=== PATIENT | male | born 1995 | race Caucasian/White ===

== ENCOUNTER → 2018-08-15 | Outpatient (CLI) | payer BC ==
[2018-08-15 08:36] LABS: ABSOLUTE BASOPHILS # (AUTO) 0.1 10^3/uL (0.0-0.2); ABSOLUTE EOSINOPHILS # (AUTO) 0.3 10^3/uL (0.0-0.6); ABSOLUTE LYMPHOCYTES (AUTO) 3.3 10^3/uL (0.5-4.7); ABSOLUTE MONOCYTES (AUTO) 1.1 10^3/uL (0.1-1.4); ABSOLUTE NEUT (AUTO) 7.8 10^3/uL (1.7-8.2); BASOPHILS % (AUTO) 0.6 % (0-2); HEMATOCRIT 47.2 % (37.9-51.0); HEMOGLOBIN 15.9 g/dL (13.5-17.0); LYMPHOCYTES % (AUTO) 26.6 % (13-45); MEAN CORPUSCULAR HEMOGLOBIN 29.6 pg (27.0-33.4); MEAN CORPUSCULAR HGB CONC 33.8 g/dL (32.0-36.0); MEAN CORPUSCULAR VOLUME 88 fl (80-97); MONOCYTES % (AUTO) 8.7 % (3-13); PLATELET COUNT 254 10^3/uL (150-450); RED BLOOD COUNT 5.38 10^6/uL (4.35-5.55); RED CELL DISTRIBUTION WIDTH 14.2 % (11.5-14.0); SEGMENTED NEUTROPHILS % (AUTO) 62.1 % (42-78); TOTAL CELLS COUNTED % (AUTO) 100 %; WHITE BLOOD COUNT 12.5 10^3/uL (4.0-10.5)
[2018-08-15 08:52] LABS: ALANINE AMINOTRANSFERASE 26 U/L (21-72); ALBUMIN 4.5 g/dL (3.5-5.0); ALKALINE PHOSPHATASE 54 U/L (38-126); AMYLASE 72 U/L (30-110); ANION GAP 11 (5-19); ASPARTATE AMINO TRANSFERASE 16 U/L (17-59); BILIRUBIN,DIRECT 0.3 mg/dL (0.0-0.4); BILIRUBIN,TOTAL 0.8 mg/dL (0.2-1.3); BLOOD UREA NITROGEN 13 mg/dL (7-20); CALCIUM 9.9 mg/dL (8.4-10.2); CARBON DIOXIDE 30 mmol/L (22-30); CHLORIDE 101 mmol/L (98-107); CHOLESTEROL 198.43 mg/dL (0-200); GLUCOSE 90 mg/dL (75-110); LIPASE 46.4 U/L (23-300); POTASSIUM 4.5 mmol/L (3.6-5.0); SODIUM 141.6 mmol/L (137-145); TOTAL PROTEIN 7.3 g/dL (6.3-8.2); TRIGLYCERIDES 176 mg/dL (<150)
[2018-08-15 09:03] LABS: DIRECT LDL 149 mg/dL (<100)
[2018-08-15 09:06] LABS: VLDL CHOLESTEROL 35.2 mg/dL (10-31)
== END ==
LOC: OD 07:41
PROVIDERS: ATTEND Family Medicine Geriatric Medicine
DX: R10.13 Epigastric pain (principal); R10.11 Right upper quadrant pain; R10.12 Left upper quadrant pain; K29.00 Acute gastritis without bleeding; E66.3 Overweight; Z29.9 Encounter for prophylactic measures, unspecified; Z79.899 Other long term (current) drug therapy
CPT/HCPCS: 36415; 80053; 80061; 82150; 83690; 84443; 85025

== ENCOUNTER → 2018-08-19 | Outpatient (CLI) | payer BC ==
--- NOTE | 2018-08-19 10:06 | RADIOLOGY REPORT (SQ) ---
EXAM DESCRIPTION: U/S ABDOMEN COMPLETE W/DOPPLER COMPLETED DATE/TIME: 08/19/2018 9:31 am REASON FOR STUDY: EPIGASTRIC PAIN (R10.13) R10.13 EPIGASTRIC PAIN COMPARISON: None. TECHNIQUE: Dynamic and static grayscale images acquired of the abdomen and recorded on PACS. Additio nal selected color Doppler and spectral images recorded. LIMITATIONS: None. FINDINGS: PANCREAS: Midline pancreas unremarkable. Pancreatic tail not well seen due to limited aco ustic window. LIVER: No masses. Echotexture normal. LIVER VASCULATURE: Normal directional flow of the main portal vein and hepatic veins. GALLBLADDER: No stones. Normal wall thickness. No pericholecystic fluid. ULTRASOUND-DETECTED AVENDANO'S SIGN: Negative. INTRAHEPATIC DUCTS AND COMMON DUCT: CBD and intrahepatic ducts normal caliber. No filling defects. INFERIOR VENA CAVA: Normal flow. AORTA: No aneurysm. RIGHT KIDNEY: Normal size. Normal echogenicity. No solid or suspicious masses. No hydronephros is. No calcifications. LEFT KIDNEY: Normal size. Normal echogenicity. No solid or suspicious masses. No hydronephrosi s. No calcifications. SPLEEN: Normal size. No solid masses. PERITONEAL AND PLEURAL SPACES: No ascites or effusions. OTHER: No other significant finding. IMPRESSION: NORMAL ABDOMINAL ULTRASOUND. TECHNICAL DOCUMENTATION: JOB ID: [id number] [email or web address]- All Rights Reserved Reading location - IP/workstation name: [email or web address]
== END ==
LOC: RAD 07:56
PROVIDERS: ATTEND Family Medicine Geriatric Medicine
DX: R10.13 Epigastric pain (principal)
CPT/HCPCS: 76700; 93976

== ENCOUNTER 2018-08-22 12:41 | Emergency (ER) | payer BC ==
[2018-08-22 12:45] VITALS: BP 131/84
[2018-08-22] MEDS ORDERED: KETOROLAC TROMETHAMINE 10 MG TABLET PO ONE (12:55)
[2018-08-22] MEDS ORDERED: DICYCLOMINE HCL 20 MG TABLET PO ONE (12:55)
--- NOTE | 2018-08-22 12:57 | ER Document Report ---
ED GI/ - General Chief Complaint: Abdominal Pain Stated Complaint: ABDOMINAL PAIN Time Seen by Provider: 08/22/18 12:48 Mode of Arrival: Ambulatory Information source: Patient Notes: Chief complaint: abdominal pain: History of complain:( obtained from----patient) 23 years old male presents today with right-sided abdominal pain for the last few weeks. Last 2 days increase in intensity. Associated with no nausea vomiting diarrhea dysuria frequency. Claims that he has daily bowel movements. Denies any cannabis abuse. Onset: As above gradual Duration: Last few weeks Severity: Mild to moderate Quality: Crampy Context: Unknown Exacerbating factor and relieving factors: None REVIEW OF SYSTEMS: CONSTITUTIONAL : Denies fever, chills, or sweats. Denies recent illness. EENT: Denies eye, ear, throat, or mouth pain or symptoms. Denies nasal or sinus congestion or discharge. Denies throat, tongue, or mouth swelling or difficulty swallowing. CARDIOVASCULAR: Denies chest pain. Denies palpitations or racing or irregular heart beat. Denies ankle edema. RESPIRATORY: Denies cough, cold, or chest congestion. Denies shortness of breath, difficulty breathing, or wheezing. GASTROINTESTINAL: Denies distention. Denies nausea, vomiting, or diarrhea. Denies blood in vomitus, stools, or per rectum. Denies black, tarry stools. Denies constipation. GENITOURINARY: Denies difficulty urinating, painful urination, burning, frequency, blood in urine, or discharge. FEMALE GENITOURINARY: Denies vaginal bleeding, heavy or abnormal periods, irregular periods. Denies vaginal discharge or odor. MUSCULOSKELETAL: Denies back or neck pain or stiffness. Denies joint pain or swelling. SKIN: Denies rash, lesions or sores. HEMATOLOGIC : Denies easy bruising or bleeding. LYMPHATIC: Denies swollen, enlarged glands. NEUROLOGICAL: Denies confusion or altered mental status. Denies passing out or loss of consciousness. Denies dizziness or lightheadedness. Denies headache. Denies weakness or paralysis or loss of use of either side. Denies problems with gait or speech. Denies sensory loss, numbness, or tingling. Denies seizures. PSYCHIATRIC: Denies anxiety or stress. Denies depression, suicidal ideation, or homicidal ideation. ALL OTHER SYSTEMS REVIEWED AND NEGATIVE. PHYSICAL EXAMINATION: GENERAL: Well-appearing, well-nourished and in no acute distress. HEAD: Atraumatic, normocephalic. EYES: Pupils equal round and reactive to light, extraocular movements intact, conjunctiva are normal. ENT: Nares patent, oropharynx clear without exudates. Moist mucous membranes. NECK: Normal range of motion, supple without lymphadenopathy LUNGS: Breath sounds clear to auscultation bilaterally and equal. No wheezes rales or rhonchi. HEART: Regular rate and rhythm without murmurs ABDOMEN: Soft, diffuse mild tenderness more so on the right side of the abdomen. , No flank tenderness, nondistended abdomen. No guarding, no rebound. No masses appreciated. Female : deferred Musculoskeletal: Normal range of motion, no pitting or edema. No cyanosis. NEUROLOGICAL: Cranial nerves grossly intact. Normal speech, normal gait. Normal sensory, motor exams PSYCH: Normal mood, normal affect. SKIN: Warm, Dry, normal turgor, no rashes or lesions noted. Dictation was performed using [employer] voice recognition software TRAVEL OUTSIDE OF THE [place] IN LAST 30 DAYS: No - HPI Notes: 08/22/18 12:56 Dictated - Related Data Allergies/Adverse Reactions: Sulfa (Sulfonamide Antibiotics) Allergy (Verified 08/22/18 12:42) Past Medical History - Social History Smoking Status: Never Smoker Chew tobacco use (# tins/day): No Frequency of alcohol use: None Drug Abuse: None Lives with: Family Family History: Reviewed & Not Pertinent Patient has suicidal ideation: No Patient has homicidal ideation: No Renal/ Medical History: Denies: Hx Peritoneal Dialysis Review of Systems - Review of Systems Notes: Dictated Physical Exam - Vital signs Vitals: Temp Pulse Resp BP Pulse Ox 97.4 F 89 16 131/84 H 99 08/22/18 12:42 08/22/18 12:42 08/22/18 12:42 08/22/18 12:42 08/22/18 12:42 - Notes Notes: Dictated Course - Vital Signs Vital signs: Temp Pulse Resp BP Pulse Ox 97.4 F 89 16 131/84 H 99 08/22/18 12:42 08/22/18 12:42 08/22/18 12:42 08/22/18 12:42 08/22/18 12:42 - Laboratory Result Diagrams: 08/22/18 13:24 08/22/18 13:24 Laboratory results interpreted by me: 08/22/18 13:24 Potassium 5.1 H AST 15 L ALT 19 L - Diagnostic Test Radiology reviewed: Image reviewed - KUB showed large amount of fecal material. Discharge - Discharge Clinical Impression: Constipation by delayed colonic transit Abdominal pain Qualifiers: Abdominal location: generalized Qualified Code(s): R10.84 - Generalized abdominal pain Condition: Fair Disposition: HOME, SELF-CARE Instructions: Abdominal Pain ([facility]), Constipation ([facility]) Prescriptions: Ketorolac Tromethamine [Toradol 10 mg Tablet] 10 mg PO Q6HP PRN #14 tablet PRN Reason: Dicyclomine HCl [Bentyl 10 mg Capsule] 1 cap PO TID #30 cap Lactulose [Cephulac Syrup 20 gm/30 ml Udcup] 20 gm PO BID #120 udc Referrals: ADAM ZIEGLER MD [Primary Care Provider] - Follow up as needed
[2018-08-22 13:44] LABS: ABSOLUTE EOSINOPHILS # (AUTO) 0.2 10^3/uL (0.0-0.6); ABSOLUTE LYMPHOCYTES (AUTO) 1.9 10^3/uL (0.5-4.7); ABSOLUTE MONOCYTES (AUTO) 1.1 10^3/uL (0.1-1.4); ABSOLUTE NEUT (AUTO) 6.7 10^3/uL (1.7-8.2); BASOPHILS % (AUTO) 0.5 % (0-2); EOSINOPHILS % (AUTO) 2.4 % (0-6); HEMATOCRIT 47.3 % (37.9-51.0); HEMOGLOBIN 16.1 g/dL (13.5-17.0); LYMPHOCYTES % (AUTO) 19.3 % (13-45); MEAN CORPUSCULAR HEMOGLOBIN 29.8 pg (27.0-33.4); MEAN CORPUSCULAR HGB CONC 34.1 g/dL (32.0-36.0); MEAN CORPUSCULAR VOLUME 88 fl (80-97); MONOCYTES % (AUTO) 11.1 % (3-13); PLATELET COUNT 221 10^3/uL (150-450); RED BLOOD COUNT 5.41 10^6/uL (4.35-5.55); RED CELL DISTRIBUTION WIDTH 13.8 % (11.5-14.0); SEGMENTED NEUTROPHILS % (AUTO) 66.7 % (42-78); TOTAL CELLS COUNTED % (AUTO) 100 %; WHITE BLOOD COUNT 10.1 10^3/uL (4.0-10.5)
[2018-08-22 13:49] LABS: APPEARANCE,URINE CLEAR; BILIRUBIN,URINE NEGATIVE (NEGATIVE); COLOR,URINE YELLOW; GLUCOSE, URINE NEGATIVE (NEGATIVE); KETONES,URINE NEGATIVE (NEGATIVE); LEUKOCYTE ESTERASE,URINE NEGATIVE (NEGATIVE); NITRITE,URINE NEGATIVE (NEGATIVE); PROTEIN,URINE NEGATIVE (NEGATIVE); URINE SPECIFIC GRAVITY 1.016; UROBILINOGEN,URINE NEGATIVE mg/dL (<2.0)
[2018-08-22 13:56] LABS: ALANINE AMINOTRANSFERASE 19 U/L (21-72); ALBUMIN 4.8 g/dL (3.5-5.0); ALKALINE PHOSPHATASE 63 U/L (38-126); ANION GAP 15 (5-19); ASPARTATE AMINO TRANSFERASE 15 U/L (17-59); BILIRUBIN,DIRECT 0.2 mg/dL (0.0-0.4); BILIRUBIN,TOTAL 0.5 mg/dL (0.2-1.3); BLOOD UREA NITROGEN 8 mg/dL (7-20); CARBON DIOXIDE 30 mmol/L (22-30); CHLORIDE 100 mmol/L (98-107); GLUCOSE 98 mg/dL (75-110); POTASSIUM 5.1 mmol/L (3.6-5.0); TOTAL PROTEIN 7.7 g/dL (6.3-8.2)
--- NOTE | 2018-08-22 13:56 | RADIOLOGY REPORT (SQ) ---
EXAM DESCRIPTION: KUB/ABDOMEN (SINGLE VIEW) COMPLETED DATE/TIME: 08/22/2018 1:44 pm REASON FOR STUDY: Abdominal pain COMPARISON: None. NUMBER OF VIEWS: One view. TECHNIQUE: Supine radiographic image of the abdomen acquired. LIMITATIONS: None. FINDINGS: BOWEL GAS PATTERN: Normal bowel gas pattern. No dilated loops. Gas and fecal material is identified in the distribution of the colon with a moderate amount of fecal material at the level of the rectosigmoid. CALCIFICATIONS: No suspicious calcifications. SOFT TISSUES: No gross mass or suggestion of organomegaly. HARDWARE: None in the abdomen. BONES: No acute fracture. No worrisome bone lesions. OTHER: No other significant finding. IMPRESSION: NO RADIOGRAPHIC EVIDENCE FOR ACUTE ABDOMINAL DISEASE. TECHNICAL DOCUMENTATION: JOB ID: [id number] [email or web address]- All Rights Reserved Reading location - IP/workstation name: [email or web address]
[2018-08-22 14:03] LABS: URINE AMPHETAMINES SCREEN NEGATIVE; URINE BARBITURATES SCREEN NEGATIVE; URINE BENZODIAZEPINES SCREEN NEGATIVE; URINE COCAINE SCREEN NEGATIVE; URINE MARIJUANA (THC) SCREEN NEGATIVE; URINE METHADONE SCREEN NEGATIVE; URINE PHENCYCLIDINE SCREEN NEGATIVE
== END 2018-08-22 15:37 | disposition home or self-care (01) ==
LOC: ER 12:41
DX: K59.01 Slow transit constipation (principal); R10.84 Generalized abdominal pain; Z88.2 Allergy status to sulfonamides
CPT/HCPCS: 99284; 36415; 85025; 80053; 81001; 80307; 74018; J3490 ×2

== ENCOUNTER 2019-03-21 13:13 | Emergency (ER) | payer BC ==
[2019-03-21 13:32] VITALS: BP 138/86
--- NOTE | 2019-03-21 15:33 | ER Document Report ---
HPI - HPI Patient complains to provider of: sore throat, cough, and congestion Time Seen by Provider: 03/21/19 15:32 Onset: This morning Onset/Duration: Sudden, Persistent Quality of pain: Achy Severity: Mild Pain Level: 1 Context: 23 yr old pt, with the listed pmh, here presenting with sore throat, cough, and congestion for 1 day. patient states the pain is an 4/10 sharp achiness that increases with swallowing and decreases with rest. Patient states no acute respiratory distress. Patient states no difficulty swallowing, breathing, or ewing ndling secretions. Patient denies any ear pain, fever, cp, sob, vomiting, diarrhea, abd pain, vision changes, dizziness, rash, or headache. Patient states nothing is making the symptoms better and is here in the emergency department for symptom control. Patient denies any other complaints at this time. no recent antibiotics or steroids. no hx of diabetes or asthma. utd on shots. Associated Symptoms: Nonproductive cough, Sore throat Exacerbated by: Coughing Relieved by: Remaining still Similar symptoms previously: Yes Recently seen / treated by doctor: No Past Medical History - General Information source: Patient - Social History Smoking Status: Unknown if Ever Smoked Frequency of alcohol use: unknown Drug Abuse: Other - unknown Family History: Reviewed & Not Pertinent Patient has suicidal ideation: No Patient has homicidal ideation: No - Medical History Medical History: Negative Renal/ Medical History: Denies: Hx Peritoneal Dialysis - Immunizations Immunizations up to date: Yes Vertical Provider Document - CONSTITUTIONAL Notes: Vital signs: All vital signs were reviewed per nursing notes. Gen. appearance: Nontoxic, patient of stated age, sitting comfortably in the bed. pleasant, young, male, smiling, speaking in full sentences, in no sign of pain or resp distress, Psychiatric: Alert and oriented x3, pleasant and very conversational, normal affect. Skin: Warm, pink, dry, normal turgor, no rashes. ENT: Normocephalic, atraumatic, pupils are equal and reactive to light, extraocular muscles intact, tympanic membranes and canals normal, mucosal membranes moist, pink conjunctiva, there is mild-mod pharyngeal erythema and no tonsillar exudate or hypertrophy bilaterally. There are no signs of abscess. The uvula is midline. There is no submandibular harness. There is no trismus. There is no tenderness over the sternocleidomastoid or thyroid cartilage. no drooling, tripoding, or hot potato voice. no sign of ludwigs or mastoiditis Neck: Supple, no tenderness, mild bilat ant cerv lymphadenopathy. CV: Regular rate and rhythm, no murmurs Lungs: Clear to auscultation bilaterally, no wheezes, symmetrical chest rise. Abdomen: Soft, nontender, nondistended, good bowel sounds, no rebound, rigidity, guarding, peritoneal signs or organomegaly. No CVA tenderness bilaterally. This is a nonacute abdomen. No tenderness over McBurney's point. Back: no tenderness Extremities: Full rom, full strength, good pulses, normal gait, no swelling or ttp of extremities. good hand caption writer. brisk cap refill. neg axel sign. Neuro: Cranial nerves II through XII intact, normal speech, cerebellar fxn intact, motor and sensation intact - INFECTION CONTROL TRAVEL OUTSIDE OF THE [place] IN LAST 30 DAYS: No Course - Re-evaluation Re-evalutation: pt here for sore throat and uri sx x 1 day. rapid strep neg. advised will call with any abnormal throat culture results that require change in plan of care. secondary to lack of chronicity of sx, vitals, hx, and exam, will avoid abx and steroids at this time, as sx likely viral. advised sx care. push fluids. otc meds for pain. salt water gargles. will dc with cheratussin. gave medication precautions. advised to f/u with pcp in 1-2 days. return for any worsening symptoms. vss. well appearing. satting well on ra. neurononfocal. pt understands and agrees to plan. he didn't want anything here for his sore throat or sx. On reexam, pt remained stable. nontoxic. well appearing. pain controlled. tolerating po. requesting to go home. Documentation achieved through voice recording which my lead to some occasional accidental typographical errors. Extensive efforts have been made to proof read documentation to make sure these are the least as possible. Category Date Time Status Strep [DIRECT STREP,RAPID] [MO] Stat Lab 03/21/19 16:03 Completed THROAT CULTURE [MC] Routine Lab 03/21/19 16:03 Completed 04/10/19 01:08 - Vital Signs Vital signs: Temp Pulse Resp BP Pulse Ox 98.2 F 74 16 138/86 H 98 03/21/19 13:30 03/21/19 13:30 03/21/19 13:30 03/21/19 13:30 03/21/19 13:30 - Laboratory Laboratory results interpreted by me: Labs- Entire Visit 03/21/19 16:03 Group A Strep Rapid NEGATIVE Discharge - Discharge Clinical Impression: Acute pharyngitis Qualifiers: Pharyngitis/tonsillitis etiology: unspecified etiology Qualified Code(s): J02.9 - Acute pharyngitis, unspecified URI (upper respiratory infection) Qualifiers: URI type: unspecified URI Qualified Code(s): J06.9 - Acute upper respiratory infection, unspecified Condition: Stable Disposition: HOME, SELF-CARE Instructions: Sore Throat ([facility]), Upper Respiratory Illness ([facility]) Additional Instructions: Follow-up with PCP 1 to 2 days. Return for any worsening symptoms. we will call you with any abnormal results of your throat culture once they return. Drink plenty of fluids. Salt water gargles. Take the medication as prescribed. Do not work, drive, operate machinery while taking the cough medication. tylenol or motrin as needed for any pain or fever. Prescriptions: Codeine Phosphate/Guaifenesin [Cheratussin AC Syrup] 10 ml PO TID #118 liquid Forms: Return to Work Referrals: ADAM ZIEGLER MD [Primary Care Provider] - Follow up as needed
== END 2019-03-21 16:39 | disposition home or self-care (01) ==
LOC: ER 13:13
DX: J02.9 Acute pharyngitis, unspecified (principal); J06.9 Acute upper respiratory infection, unspecified; R05 Cough
CPT/HCPCS: 87070; 87880; 99283

== ENCOUNTER 2019-06-30 09:35 | Emergency (ER) | payer BC ==
[2019-06-30 11:15] LABS: A TYPE INFLUENZA AG NEGATIVE (NEGATIVE); B INFLUENZA AG NEGATIVE (NEGATIVE)
--- NOTE | 2019-06-30 13:33 | ER Document Report ---
ED Flu Like - General Chief Complaint: Flu Symptoms Stated Complaint: RIB PAIN, COUGH, CONGESTION Time Seen by Provider: 06/30/19 12:53 Primary Care Provider: ADAM ZIEGLER MD [Primary Care Provider] - Follow up as needed Notes: 23-year-old male presents with coughing for the last several days and left rib pain. Patient stated he has some sharp left rib pain hurts when he coughs or moves. States he said runny nose congestion. A little bit of a sore throat. Describes coughing as severe his throat is mild to moderate. TRAVEL OUTSIDE OF THE [place] IN LAST 30 DAYS: No - Related Data Allergies/Adverse Reactions: Sulfa (Sulfonamide Antibiotics) Allergy (Intermediate, Verified 06/30/19 10:08) Hives Past Medical History - Social History Smoking Status: Never Smoker Chew tobacco use (# tins/day): No Frequency of alcohol use: None Drug Abuse: None Family History: Reviewed & Not Pertinent Patient has suicidal ideation: No Patient has homicidal ideation: No Renal/ Medical History: Denies: Hx Peritoneal Dialysis - Immunizations Immunizations up to date: Yes Review of Systems - Review of Systems Constitutional: Chills, Fever EENT: Nose congestion, Nose discharge, Throat pain Cardiovascular: No symptoms reported, Chest pain. denies: Palpitations, Heart racing Respiratory: denies: Short of breath, Wheezing Gastrointestinal: Diarrhea, Nausea, Vomiting Genitourinary: denies: Dysuria, Hematuria Neurological/Psychological: denies: Headaches -: No All other systems reviewed and negative Physical Exam - Vital signs Vitals: Temp Pulse Resp BP Pulse Ox 98.1 F 83 20 135/85 H 100 06/30/19 09:54 06/30/19 09:54 06/30/19 09:54 06/30/19 09:54 06/30/19 09:54 - Notes Notes: GENERAL_APPEARANCE: well_nourished, alert, cooperative VITALS: reviewed, see vital signs table. HEAD: no_swelling\tenderness on the head. EYES: PERRL, EOMI, conjunctiva_clear. NOSE: Clear_nasal_discharge. Turbinate inflammation MOUTH: (-)decreased moisture. THROAT: Mild_tonsilar_inflammation, no_airway_obstruction. no_lymphadenopathy NECK: supple, no_neck_tenderness, (-)thyromegaly. BACK: no_back_tenderness. CHEST_WALL: no_chest_tenderness. LUNGS: no_wheezing, no_rales, no_rhonchi, (-)accessory muscle use, good air exchange bilateral. HEART: normal_rate, normal_rhythm, normal_S1, normal_S2, (-)S3, (-)S4, no_murmur, no_rub. ABDOMEN: normal_BS, soft, no_abd_tenderness, (-)guarding, (-)rebound, no_organomegaly, no_abd_masses. EXTREMITIES: good pulses in all_extremities, no_swelling\tenderness in the extremities, no_edema. SKIN: warm, dry, good_color, no_rash. MENTAL_STATUS: speech_clear, oriented_X_3, normal_affect, responds_appropriately to questions. Course - Re-evaluation Re-evalutation: 06/30/19 13:32 23-year-old male presents with cough and cold-like symptoms. Will get a chest x-ray to assess for any kind of pneumonia his discomfort seems to be more musculoskeletal. He has no oxygen requirements. Influenza swab was negative. 06/30/19 14:50 Chest x-ray showed no acute abnormalities. Is likely a viral illness. Spoke with patient about supportive care will prescribe some cough medicine. While the patient follow-up spoke with him about Tylenol Motrin drinking plenty fluids. If not improving in 40 to 72 hours return to ER - Vital Signs Vital signs: Temp Pulse Resp BP Pulse Ox 98.1 F 83 20 135/85 H 100 06/30/19 09:54 06/30/19 09:54 06/30/19 09:54 06/30/19 09:54 06/30/19 09:54 - Diagnostic Test Radiology reviewed: Reports reviewed Radiology results interpreted by me: 06/30/19 14:50 Chest X-Ray 06/30/19 13:23 IMPRESSION: NO ACUTE RADIOGRAPHIC FINDING IN THE CHEST. Discharge - Discharge Clinical Impression: Viral syndrome Condition: Good Disposition: HOME, SELF-CARE Instructions: Viral Syndrome ([facility]) Prescriptions: Benzonatate [Tessalon Perles 100 mg Capsule] 100 mg PO Q8HP PRN #40 capsule PRN Reason: Cough Ibuprofen [Motrin 600 Mg Tablet] 600 mg PO TID #15 tablet Referrals: ADAM ZIEGLER MD [Primary Care Provider] - Follow up as needed
--- NOTE | 2019-06-30 13:46 | RADIOLOGY REPORT (SQ) ---
EXAM DESCRIPTION: CHEST 2 VIEWS COMPLETED DATE/TIME: 06/30/2019 1:38 pm REASON FOR STUDY: cough COMPARISON: None. EXAM PARAMETERS: NUMBER OF VIEWS: two views TECHNIQUE: Digital Frontal and Lateral radiographic views of the chest acquired. RADIATION DOSE: NA LIMITATIONS: none FINDINGS: LUNGS AND PLEURA: No opacities, masses or pneumothorax. No pleural effusion. MEDIASTINUM AND HILAR STRUCTURES: No masses or contour abnormalities. HEART AND VASCULAR STRUCTURES: Heart normal size. No evidence for failure. BONES: No acute findings. HARDWARE: None in the chest. OTHER: No other significant finding. IMPRESSION: NO ACUTE RADIOGRAPHIC FINDING IN THE CHEST. TECHNICAL DOCUMENTATION: JOB ID: [id number] [employer]- All Rights Reserved Reading location - IP/workstation name: [email or web address]
[2019-06-30 15:04] VITALS: BP 141/92
== END 2019-06-30 15:04 | disposition home or self-care (01) ==
LOC: ER 09:35
DX: B34.9 Viral infection, unspecified (principal); R05 Cough; R07.81 Pleurodynia; R09.89 Other specified symptoms and signs involving the circulatory and respiratory systems; J02.9 Acute pharyngitis, unspecified; R50.9 Fever, unspecified; R09.81 Nasal congestion; R19.7 Diarrhea, unspecified; R11.2 Nausea with vomiting, unspecified; Z88.2 Allergy status to sulfonamides
CPT/HCPCS: 71046; 87070; 87804; 87880; 96361; 96372; 96374; 96375; 96376; 99284

== ENCOUNTER 2019-12-19 23:16 | Emergency (ER) | payer BC, OTHER ==
[2019-12-19] MEDS ORDERED: OXYCODONE-ACETAMINOPHEN 5-325 MG TABLET PO ONE (23:51)
--- NOTE | 2019-12-19 23:57 | RADIOLOGY REPORT (SQ) ---
EXAM: X-RAY ELBOW LEFT 1-2 VIEWS CLINICAL INDICATION: Bone pain TECHNIQUE: AP and lateral radiographs of the left elbow were obtained at 2354 hours on 12/19/2019. COMPARISON: None. FINDINGS: There is no fracture or dislocation. The joint spaces are preserved. No soft tissue abnormalities or joint effusion are seen. IMPRESSION: No acute radiographic abnormality.
--- NOTE | 2019-12-20 00:20 | ER Document Report ---
HPI - HPI Time Seen by Provider: 12/19/19 23:40 Pain Level: 3 Notes: Otherwise healthy 24-year-old male presenting to the emergency department chief complaint of left upper arm injury. Patient reports he was laying in bed and reached backwards when he felt and heard a very loud snap coming from his upper arm. He believes he is injured his biceps tendon. He denies any history of similar injuries in the past. - REPRODUCTIVE Reproductive: DENIES: : Past Medical History - General Information source: Patient - Social History Smoking Status: Never Smoker Family History: Reviewed & Not Pertinent Patient has suicidal ideation: No Patient has homicidal ideation: No - Medical History Medical History: Negative Renal/ Medical History: Denies: Hx Peritoneal Dialysis Surgical Hx: Negative - Immunizations Immunizations up to date: Yes Vertical Provider Document - CONSTITUTIONAL Notes: PHYSICAL EXAMINATION: GENERAL: Well-appearing, well-nourished and in no acute distress. HEAD: Atraumatic, normocephalic. EYES: Pupils equal round extraocular movements intact, conjunctiva are normal. ENT: Nares patent NECK: Normal range of motion LUNGS: No respiratory distress Musculoskeletal: Limited range of motion to left upper arm, normal range of motion at the elbow and wrist. Cap refill less than 3 seconds, normal motor distally, strong radial pulse, extremity warm. No obvious abnormality noted to the upper arm, slightly decreased strength. NEUROLOGICAL: Normal speech, normal gait. PSYCH: Normal mood, normal affect. SKIN: Warm, Dry, normal turgor, no rashes or lesions noted. - INFECTION CONTROL TRAVEL OUTSIDE OF THE [place] IN LAST 30 DAYS: No Course - Re-evaluation Re-evalutation: X-ray was unremarkable for any obvious abnormality. Will place patient in sling and have patient treat conservatively over the weekend, will follow-up with Ortho Sunday or Sunday as we cannot 100% exclude a partial biceps tendon rupture although I feel it is unlikely at this time based on exam. - Vital Signs Vital signs: Temp Pulse Resp BP Pulse Ox 98.1 F 104 H 16 146/105 H 97 12/19/19 23:24 12/19/19 23:24 12/19/19 23:24 12/19/19 23:24 12/19/19 23:24 Discharge - Discharge Clinical Impression: Left upper arm pain Condition: Stable Disposition: HOME, SELF-CARE Additional Instructions: There is not appear to be any obvious injury on the x-ray. Please use the sling as needed for comfort and support. Place ice packs to the area. Take ibuprofen 600 mg every 6 hours for the next several days. Use the [place] for severe pain only. If pain persists through the weekend please call orthopedics Sunday to schedule follow-up. Prescriptions: Hydrocodone/Acetaminophen [[place] 5-325 mg Tablet] 1 tab PO Q4H PRN #10 tablet PRN Reason: For Pain Referrals: FLORENCIA STREETER JR, DO [ACTIVE PROVISIONAL STAFF] - Follow up as needed SALBADOR ARMAS DO [ACTIVE STAFF] - Follow up as needed
[2019-12-20 00:49] VITALS: BP 146/105
== END 2019-12-20 01:04 | disposition home or self-care (01) ==
LOC: ER 23:16
DX: M79.622 Pain in left upper arm (principal); X58.XXXA Exposure to other specified factors, initial encounter
CPT/HCPCS: 99283